=== PATIENT | male | born 1960 | race Caucasian/White ===

== ENCOUNTER 2025-02-02 23:18 | Emergency (ER) | payer OTHER ==
[2025-02-02 23:25] VITALS: PULSE 89; RESP 18; TEMP 97.6
--- NOTE | 2025-02-02 23:52 | ED ---
General Adult HPI - General Chief complaint: Urogenital Stated complaint: Urinary Retention Time Seen by Provider: 02/02/25 23:25 Source: patient Mode of arrival: wheelchair Limitations: no limitations - History of Present Illness Initial comments: Dictation was produced using [employer] dictation software. please excuse any grammatical, word or spelling errors. Chief Complaint: 65-year-old male with urinary tension History of Present Illness: Patient 65-year-old male history of prostate cancer. He just had a Greene removed at his oncology office earlier today. Has not urinated since. The ROS documented in this emergency department record has been reviewed and confirmed by me. Those systems with pertinent positive or negative responses unger ve been documented in the HPI. All other systems are other negative and/or noncontributory. - Related Data Allergies Allergy/AdvReac Type Severity Reaction Status Date / Time No Known Allergies Allergy Verified 02/02/25 23:25 Review of Systems ROS Statement: Those systems with pertinent positive or pertinent negative responses have been documented in the HPI. ROS Other: All systems not noted in ROS Statement are negative. Past Medical History Past Medical History: Cancer Additional Past Medical History / Comment(s): Prostate CA Smoking Status: Former smoker Past Alcohol Use History: None Reported Past Drug Use History: Marijuana General Exam - General Exam Comments Initial Comments: PHYSICAL EXAM: General Impression: Alert and oriented x3, not in acute distress HEENT: Normocephalic atraumatic, extra-ocular movements intact, pupils equal and reactive to light bilaterally, mucous membranes moist. Cardiovascular: Heart regular rate and rhythm Chest: Able to complete full sentences, no retractions, no tachypnea Abdomen: abdomen soft, suprapubic fullness, non-distended, no organomegaly Musculoskeletal: Pulses present and equal in all extremities, no peripheral edema Motor: no focal deficits noted Neurological: CN II-XII grossly intact, no focal motor or sensory deficits noted Skin: Intact with no visualized rashes Psych: Normal affect and mood Limitations: no limitations Course Vital Signs 02/02/25 23:20 Temperature 97.6 F Pulse Rate 89 Respiratory 18 Rate Blood Pressure 176/97 O2 Sat by Pulse 100 Oximetry Medical Decision Making - Medical Decision Making Was pt. sent in by a medical professional or institution (, PA, BUSINESS APPLICATIONS MANAGER, urgent care, hospital, or fdc...) When possible be specific @ -No Did you speak to anyone other than the patient for history (EMS, parent, family, police, friend...)? What history was obtained from this source @ -No Did you review nursing and triage notes (agree or disagree)? Why? @ -I reviewed and agree with nursing and triage notes Were old charts reviewed (outside hosp., previous admission, EMS record, old EKG, old radiological studies, urgent care reports/EKG's, fdc records)? Report findings @ -No old charts were reviewed Differential Diagnosis (chest pain, altered mental status, abdominal pain women, abdominal pain men, vaginal bleeding, musculoskeletal, weakness, fever, dyspnea, syncope, headache, dizziness, GI bleed, back pain, seizure, CVA, palpatations, mental health)? @ -Not applicable EKG interpreted by me (3pts min.). @ -None done X-rays interpreted by me (1pt min.). @ -None done CT interpreted by me (1pt min.). @ -None done U/S interpreted by me (1pt. min.). @ -None done What testing was considered but not performed or refused? (CT, X-rays, U/S, labs)? Why? @ -None What meds were considered but not given or refused? Why? @ -None Was smoking cessation discussed for >3mins.? @ -No Were there social determinants of health that impacted care today? How? (Homelessness, low income, unemployed, alcoholism, drug addiction, transportation, low edu. Level, literacy, decrease access to med. care, senior care, rehab)? @ -No Was there de-escalation of care discussed even if they declined (Discuss DNR or withdrawal of care, Hospice)? DNR status @ -No What co-morbidities impacted this encounter? (DM, HTN, Smoking, COPD, CAD, Cancer, CVA, ARF, Chemo, Hep., AIDS, mental health diagnosis, sleep apnea, morbid obesity)? @ -None Was patient admitted / discharged? Hospital course, mention meds given and route, prescriptions, significant lab abnormalities, going to OR and other pertinent info. @ -65-year-old male with prostate cancer presents to the emergency department for urinary retention. Bladder scan is 500 cc. Greene catheter placed with immediate relief. Patient discharged told to follow-up with his urologist. Did you discuss the management of the patient with other professionals (jak valadez i.e. , PA, BUSINESS APPLICATIONS MANAGER, lab, RT, psych nurse, social services manager, attorney lawyer, teacher, senior commercial loan officer, disease case manager rn)? Give summary @ -No Was critical care preformed (if so, how long)? @ -No Undiagnosed new problem with uncertain prognosis? @ -No Drug Therapy requiring intensive monitoring for toxicity (Heparin, Nitro, Insulin, Cardizem)? @ -No Were any procedures done? @ -No Diagnosis/symptom? Acute, or Chronic, or Acute on Chronic? Uncomplicated (without systemic symptoms) or Complicated (systemic symptoms)? @ -Urinary retention Side effects of treatment? @ -No Exacerbation, Progression, or Severe Exacerbation? @ -No Poses a threat to life or bodily function? How? (Chest pain, [place], [place], pneumonia, PE, COPD, DKA, ARF, appy, cholecystitis, CVA, Diverticulitis, Homicidal, Suicidal, threat to staff... and all critical care pts) @ -yes Disposition Clinical Impression: Urinary retention Disposition: HOME SELF-CARE Condition: Fair Instructions (If sedation given, give patient instructions): Greene Catheter Placement and Care (ED) Additional Instructions: Follow-up with your urologist Is patient prescribed a controlled substance at d/c from ED?: No Referrals: Errol Dougherty DO [Primary Care Provider] - 1-2 days Time of Disposition: 23:52
[2025-02-03 00:12] VITALS: BP 152/87
[2025-02-03 00:30] LABS: Appearance,Urine Bloody (Clear); Color,Urine Dark Red
[2025-02-03 00:34] LABS: Bacteria,Urine Moderate /hpf; RBC,Urine >182 /hpf (0-5); WBC,Urine 130 /hpf (0-5)
== END 2025-02-03 00:12 | disposition home or self-care (01) ==
LOC: EC 23:18
DX: R33.9 Retention of urine, unspecified (principal); Z87.891 Personal history of nicotine dependence
CPT/HCPCS: 51702; 51798; 81001; 87086; 99283